=== PATIENT | female | born 1985 | race Two or more races ===

== ENCOUNTER 2018-05-04 10:06 | Outpatient (CLI) | payer OTHER ==
--- NOTE | 2018-05-06 12:43 | Ultrasound Report ---
Reason: TEST POSITIVE Procedure Date: 05/04/2018 Accession Number: [id number] / [id number] Procedure: US - OB First Trimester CPT Code: FULL RESULT: EXAM: FIRST TRIMESTER OBSTETRIC ULTRASOUND (Less than 11 weeks) EXAM DATE: 05/04/2018 10:46 AM. CLINICAL HISTORY: TEST POSITIVE. LMP: 03/18/2018. COMPARISONS: None. TECHNIQUE: Transabdominal and transvaginal ultrasound examination with static image documentation. CLINICAL DATES: EGA 6 weeks 5 days with SELVIN 12/23/2018 based on LMP. ASSESSMENT: Gestational Sac: Single intrauterine. Mean gestational sac diameter: 13.1 mm = 5 weeks 3 days. Embryo: CRL (crown-rump length) 3.9 mm = 6 weeks 0 days. Cardiac activity: 117 beats per minute. Yolk sac: 3.1 mm. Amniotic fluid: Not accurately assessed at this gestational age. Early placenta: Not visible at this gestational age. Other: No perigestational fluid collection demonstrated. MATERNAL STRUCTURES: Uterus: Retroverted. Unremarkable. Cervix: Closed. Right Ovary/Adnexa: The ovary measures 3.3 x 2.2 x 2.8 cm, volume 10.6 cc. Corpus luteum measuring up to 2.8 cm. Left Ovary/Adnexa: The ovary measures 2.4 x 1.5 x 1.5 cm, volume 2.8 cc. Unremarkable. Free Fluid: None. Other: None. IMPRESSION: 1. Single viable intrauterine at EGA 6 weeks 0 days with SELVIN 12/28/2018 based on crown-rump length, which is concordant with clinical dates. 2. Assigned dating is SELVIN 6 weeks 5 days based on LMP. YOBANI
== END 2018-05-04 10:07 | disposition home or self-care (01) ==
LOC: DI 10:06
PROVIDERS: ATTEND Nurse Practitioner Obstetrics & Gynecology
DX: Z32.01 Encounter for pregnancy test, result positive (principal); Z3A.01 Less than 8 weeks gestation of pregnancy
CPT/HCPCS: 76801; 76817

== ENCOUNTER 2018-06-05 12:08 | Outpatient (CLI) | payer OTHER | END 2018-06-05 12:09 | disposition home or self-care (01) | LOC: LAB 12:08 | PROVIDERS: ATTEND Obstetrics & Gynecology | DX: F33.9 Major depressive disorder, recurrent, unspecified (principal); O02.1 Missed abortion | CPT/HCPCS: 36415; 82306; 86900; 86901 ==

== ENCOUNTER 2018-06-08 12:39 | Outpatient (CLI) | payer OTHER ==
--- NOTE | 2018-06-08 13:50 | Ultrasound Report ---
Reason: , MISSED Procedure Date: 06/08/2018 Accession Number: [id number] / [id number] Procedure: US - Pelvic w/Transvaginal CPT Code: FULL RESULT: EXAM: PELVIC ULTRASOUND EXAM DATE: 06/08/2018 01:19 PM. CLINICAL HISTORY: , MISSED. COMPARISON: OB FIRST TRIMESTER 05/04/2018 10:17 AM. TECHNIQUE: Realtime transabdominal pelvic scan performed to identify the uterus and adnexa and as an overview of other pelvic structures, followed by transvaginal scan to provide greater detail of the uterus and adnexa, with static image documentation. FINDINGS: Uterus: 9.2 x 4.8 x 6.7 cm, volume 155 cc. Anteverted position. Normal overall size and echotexture. Masses: None. Endometrium: 14 mm. Unremarkable. No intrauterine identified. Cervix: Unremarkable. Right Ovary: 3.5 x 2.5 x 2.8 cm, volume 13 cc. Normal echotexture and blood flow. There is a dominant follicle. Probable corpus luteum measuring 2.3 x 1.5 x 1.7 cm. Left Ovary: 3.5 x 2.0 x 1.5 cm, volume 6 cc. Normal echotexture and blood flow. Free Fluid: None. Other: None. IMPRESSION: Unremarkable pelvic ultrasound. No intrauterine identified. RADIA The call report notification system was initiated by Dr. Koko Gallagher at 01:49 PM on 06/08/2018.
== END 2018-06-08 12:40 | disposition home or self-care (01) ==
LOC: DI 12:39
PROVIDERS: ATTEND Obstetrics & Gynecology
DX: O02.1 Missed abortion (principal)
CPT/HCPCS: 76830; 76856

== ENCOUNTER 2018-06-09 13:24 | Outpatient (CLI) | payer OTHER ==
[2018-06-09 13:40] LABS: HGB - HEMOGLOBIN 12.4 g/dL (12.0-16.0); MEAN CORPUSCULAR HGB CONC 34.3 g/dL (32.0-36.0); MEAN CORPUSCULAR VOLUME 87.4 fL (81.0-99.0); MEAN PLATELET VOLUME 9.2 fL (7.9-10.8); RED BLOOD COUNT 4.13 10^6/uL (4.20-5.40); WHITE BLOOD COUNT 8.3 x10^3/uL (4.8-10.8)
== END 2018-06-09 13:25 | disposition home or self-care (01) ==
LOC: LAB 13:24
PROVIDERS: ATTEND Obstetrics & Gynecology
DX: O02.1 Missed abortion (principal)
CPT/HCPCS: 36415; 85027

== ENCOUNTER 2018-06-09 15:13 | Day surgery (SDC) | payer OTHER ==
[2018-06-09] MEDS ORDERED: LACTATED RINGERS 1,000 ML IV ONE ×2 (15:19→19:50)
[2018-06-09] MEDS ORDERED: ceFAZolin 2 GM/50 ML 2 GM/50 ML BAG IV ONE (15:24)
[2018-06-09] MEDS ORDERED: LIDOCAINE 1%-EPI 1:100000 30 ML MDV ONE (15:40)
[2018-06-09] MEDS ORDERED: SCOPOLAMINE PATCH TOP ONE (15:53)
--- NOTE | 2018-06-09 15:59 | ANESTHESIA ---
Pre-Anesthesia VS, & Labs - Diagnosis Retained products of conception - Procedure D and C Vital Signs: Temp Pulse Resp BP Pulse Ox 37.4 C 123 H 16 137/88 H 99 06/09/18 15:32 06/09/18 15:32 06/09/18 15:32 06/09/18 15:32 06/09/18 15:32 Height 5 ft 2 in Weight (kg) 65 kg - Is Patient ?: No Anes History & Medical History - Anesthetic History Anesthesia Complications: reports: Post-Operative Nausea/Vomiting Family history of Anesthesia Complications: Denies Family history of Malignant Hyperthermia: Denies - Medical History Cardiovascular: reports: None Pulmonary: reports: None Gastrointestinal: reports: None Urinary: reports: None Neuro: reports: None Musculoskeletal: reports: None Endocrine/Autoimmune: reports: None Blood Disorders: reports: None Skin: reports: None Smoking Status: Never smoker Psychosocial: reports: No issues indicated - Surgical History Eyes Ears Nose Throat (EENT): Tonsil/Adenoidectomy Gynecologic: section Exam General: Alert, Oriented x3, Cooperative Dental: WNL Mouth Openin Fingerbreadth Neck Mobility: Normal Mallampati classification: II Thyromental Distance: 4-6 cm Respiratory: Lungs clear Cardiovascular: Regular rate, No murmurs Plan Anesthesia Type: General, Total IV Consent for Procedure(s) Verified and Reviewed: Yes Code Status: Attempt Resuscitation ASA classification: 1-Healthy patient Is this case an emergency?: No
[2018-06-09] MEDS ORDERED: BUPIVACAINE 0.25%-EPI 1:200000 PF 30 ML VIAL ONE (19:13)
[2018-06-09] MEDS ORDERED: BUPIVACAINE 0.25%-EPI 1:200000 PF 10 ML VIAL SUBQ ONE (19:16)
[2018-06-09] MEDS ORDERED: MIDAZOLAM 2 MG/2 ML VIAL IVP ONE (19:20)
[2018-06-09] MEDS ORDERED: fentaNYL 250 MCG/5 ML VIAL IVP ONE (19:20)
[2018-06-09] MEDS ORDERED: PROPOFOL 200 MG/20 ML VIAL IVP ONE (19:20)
[2018-06-09] MEDS ORDERED: LIDOCAINE-MPF 2% 5 ML VIAL IM ONE (19:20)
--- NOTE | 2018-06-09 19:45 | OPERATIVE REPORT ---
Operative Report - General Procedure Date: 06/09/18 Planned Procedure: Suction and Sharp D&C Pre-Op Diagnosis: Incomplete Ab Procedure Performed: Suction and Sharp D&C Post Op Diagnosis: Same - Procedure Note Primary Surgeon: Jasper Montes MD Anesthesia Provider: George Eaton CRNA Anesthesia Technique: MAC Pathology: POC IV Fluids (mL): 900 Estimated Blood Loss (mL): 20 Urine Output (mL): 10 Indications: Continued bleeding with retained POC Findings: retained POCUterus sounded ot 8 cm Complications: none - Other Other Information/Narrative: [id number]
[2018-06-09] MEDS ORDERED: LORazepam 2 MG/ML VIAL IVP PRN (19:47)
[2018-06-09] MEDS ORDERED: HYDROcod/ACETAM 5/325 MG TABLET PO PRN (19:47)
[2018-06-09] MEDS ORDERED: oxyCODONE 5 MG TABLET PO PRN (19:47)
[2018-06-09] MEDS ORDERED: HYDROmorphone 0.5 MG/0.5 ML SYRINGE IVP PRN (19:47)
[2018-06-09] MEDS ORDERED: ONDANSETRON 4 MG/2 ML VIAL IVP PRN (19:47)
[2018-06-09 20:38] VITALS: BP 107/77
--- NOTE | 2018-06-09 22:33 | OPERATIVE REPORT ---
DATE OF SERVICE: 06/09/2018 Physician: Jasper Montes MD PREOPERATIVE DIAGNOSIS: Incomplete . POSTOPERATIVE DIAGNOSIS: Incomplete . PROCEDURE: Sharp and suction dilation and curettage. SURGEON: Jasper Montes MD ANESTHESIA: George Eaton CRNA ANESTHESIA: MAC. ESTIMATED BLOOD LOSS: 20 mL. IV FLUIDS: 900 mL. URINE OUTPUT: 10 mL. FINDINGS: Uterus was noted to be retroverted on ultrasound as well as exam. The uterus sounded to 8 cm. The cervix was already dilated up to a 1 cm dilatation. There was a moderate amount of tissue, which was compatible with the ultrasound findings. DESCRIPTION OF PROCEDURE: Following adequate anesthesia, the patient was placed in the dorsal lithotomy position in [facility]. At this point, she was prepped and draped in the usual fashion. A timeout was performed in which the patient was identified and concerns reviewed. A speculum was then placed in the vagina. Then, 6 mL of 0.25% Marcaine with epinephrine was injected into each uterosacral ligament. Care was taken to aspirate every 2 mL to ensure that there was no intravascular injection. The cervix was visualized, grasped with a single-tooth tenaculum. It was noted sounded to 8 cm retroverted. The cervix was already noted to be a size 1 cm dilated. At this point, a size 10 curved suction catheter was introduced into the uterus roughly 7 cm in depth. At this point, suction was applied up to 60. The curette was then rotated and a moderate amount of tissue as was anticipated was removed on a single pass. No further tissue was obtained on a second pass. The endometrial cavity was sharply curetted. No further tissue removed and then was re-suctioned. There was no further tissue obtained at this time. At this point, the procedure was terminated. The cervix was released from the single-tooth tenaculum. Direct pressure was applied to the right side. No further bleeding was noted. The patient tolerated the procedure well and was taken to recovery in stable condition. TD: 06/09/2018 19:59 LYLY
== END 2018-06-09 21:55 | disposition home or self-care (01) ==
LOC: SDS 15:13 → OBS 20:11 → SDS 21:55
PROVIDERS: ATTEND Obstetrics & Gynecology
PROC: 10D17ZZ Extraction of Products of Conception, Retained, Via Natural or Artificial Opening (ICD-10-PCS; principal; 2018-06-09 16:30)
DX: O03.1 Delayed or excessive hemorrhage following incomplete spontaneous abortion (principal)
CPT/HCPCS: 36415; 59812; 85027; J0690; J3010; J3490; J7120